=== PATIENT | female | born 1965 | race Caucasian/White ===

== ENCOUNTER → 2025-08-11 | Outpatient (CLI) | payer OTHER ==
[2025-08-11 09:07] LABS: CREATININE SERUM 1.01 mg/dL (0.59-1.40); EST GFR, NON-AA 55.7 (>/=60)
== END | disposition home or self-care (01) ==
LOC: RAD 08:36
PROVIDERS: ATTEND Physician Assistant
DX: I07.1 Rheumatic tricuspid insufficiency (principal); R07.9 Chest pain, unspecified; Z98.82 Breast implant status
CPT/HCPCS: 78452; 93306; 71275; 36415; 82565; 93017; J2785; Q9967; A9500; Q9965